=== PATIENT | female | born 1975 | race Two or more races ===

== ENCOUNTER 2018-03-08 00:01 | Emergency (ER) | payer BC ==
[~2018-03-08] VITALS: Ht 167.6 cm; Wt 68.0 kg
[2018-03-08 02:29] VITALS: BP 125/81
[2018-03-08] MEDS ORDERED: LIDOCAINE W/ EPINEPHRINE 1% 20ML VIAL SC ONE (02:45)
[2018-03-08] MEDS ORDERED: LIDOCAINE W/ EPINEPHRINE 1 % INJ 30ML ONE (02:47)
== END 2018-03-08 03:37 | disposition home or self-care (01) ==
LOC: ER 00:01
DX: S01.112A Laceration without foreign body of left eyelid and periocular area, initial encounter (principal); Z88.6 Allergy status to analgesic agent; W01.0XXA Fall on same level from slipping, tripping and stumbling without subsequent striking against object, initial encounter; Y93.89 Activity, other specified; Y92.89 Other specified places as the place of occurrence of the external cause; Y99.8 Other external cause status
CPT/HCPCS: 12013; 70450; 82962; 99284; J2001; 96372